=== PATIENT | male | born 1970 | race Caucasian/White ===

== ENCOUNTER → 2017-01-06 | Outpatient (CLI) | payer OTHER ==
[~2017-01-06] MED LIST: BACT800T5 PO; COLC1TAB13 PO; DOXY100T PO; INDO50CA PO; LEVO500T3 PO; LISI10TA4 PO; METO50TA7 PO
[2017-01-06 13:33] LABS: MEAN CORPUSCULAR HEMOGLOBIN 31.4 pg (27.0-33.0); RED CELL DISTRIBUTION WIDTH 12.1 % (11.5-14.5); WHITE BLOOD COUNT 7.5 K/mm3 (4.0-10.0)
[2017-01-06 13:50] LABS: ALBUMIN 4.1 GM/DL (3.2-5.2); ALBUMIN/GLOBULIN RATIO 1.14 (1.00-1.93); ALKALINE PHOSPHATASE 113 U/L (45-117); ALT/SGPT 46 U/L (12-78); ANION GAP 11 MEQ/L (8-16); AST/SGOT 21 U/L (15-37); BILIRUBIN,TOTAL 0.5 MG/DL (0.2-1.0); BLOOD UREA NITROGEN 16 MG/DL (7-18); CALCIUM LEVEL 8.9 MG/DL (8.5-10.1); CARBON DIOXIDE LEVEL 27 MEQ/L (21-32); CHLORIDE LEVEL 106 MEQ/L (98-107); CHOLESTEROL LEVEL 191 MG/DL (<200); CREATININE FOR GFR 0.89 MG/DL (0.70-1.30); GLOMERULAR FILTRATION RATE > 60.0 (>60); GLUCOSE, FASTING 95 MG/DL (70-105); POTASSIUM SERUM 4.8 MEQ/L (3.5-5.1); SODIUM LEVEL 144 MEQ/L (136-145); TOTAL PROTEIN 7.7 GM/DL (6.4-8.2); TRIGLYCERIDES LEVEL 164 MG/DL (<150); URIC ACID 10.3 MG/DL (3.5-7.2)
== END ==
LOC: M WUC 10:08
PROVIDERS: ATTEND Physician Assistant
DX: I10 Essential (primary) hypertension (principal); R35.1 Nocturia
CPT/HCPCS: 36415; 80053; 80061; 84550; 85027; G0103

== ENCOUNTER → 2018-02-02 | Outpatient (CLI) | payer OTHER ==
[2018-02-02 14:06] LABS: ALBUMIN/GLOBULIN RATIO 0.98 (1.00-1.93); ALKALINE PHOSPHATASE 114 U/L (45-117); ALT/SGPT 106 U/L (12-78); ANION GAP 7 MEQ/L (8-16); AST/SGOT 51 U/L (7-37); BILIRUBIN,TOTAL 0.5 MG/DL (0.2-1.0); BLOOD UREA NITROGEN 13 MG/DL (7-18); CALCIUM LEVEL 8.6 MG/DL (8.5-10.1); CARBON DIOXIDE LEVEL 28 MEQ/L (21-32); CHLORIDE LEVEL 105 MEQ/L (98-107); CHOLESTEROL LEVEL 201 MG/DL (<200); CHOLESTEROL RISK RATIO 6.281 (<5); CREATININE FOR GFR 0.92 MG/DL (0.70-1.30); FREE T4 0.83 NG/DL (0.76-1.46); GLOMERULAR FILTRATION RATE > 60.0 (>60); GLUCOSE, FASTING 110 MG/DL (70-100); HDL CHOLESTEROL 32 MG/DL (>40); LDL CHOLESTEROL 139 MG/DL (<100); NON-HDL-C 169 MG/DL; POTASSIUM SERUM 4.5 MEQ/L (3.5-5.1); SODIUM LEVEL 140 MEQ/L (136-145); TOTAL PROTEIN 8.1 GM/DL (6.4-8.2); TRIGLYCERIDES LEVEL 149 MG/DL (<150); URIC ACID 9.4 MG/DL (3.5-7.2)
== END ==
LOC: M SMT 10:10
DX: I10 Essential (primary) hypertension (principal); M10.9 Gout, unspecified
CPT/HCPCS: 84443

== ENCOUNTER 2018-12-18 22:29 | Emergency (ER) | payer OTHER ==
[~2018-12-18] VITALS: Ht 167.6 cm; Wt 75.0 kg
[~2018-12-18 22:29] MED LIST changes: -INDO50CA PO; +INDO50CA91 PO
[2018-12-18] MEDS ORDERED: ETHYL CHLORIDE AER SPRAY 105 ML ONE (22:30)
[2018-12-18] MEDS ORDERED: INDO50CA91 PO (22:40)
[2018-12-19] MEDS ORDERED: ETHYL CHLORIDE AER SPRAY 105 ML TOP SCH (01:00)
[2018-12-19 01:16] LABS: BASO % 0.3 % (0.0-1.0); EOS # 0.3 10^3/uL (0.0-0.50); EOS % 2.2 % (0.0-3.0); HEMOGLOBIN 14.1 g/dl (13.5-17.5); LYMPH # 2.5 10^3/uL (1.5-4.5); LYMPH % 19.1 % (24.0-44.0); MEAN CORPUSCULAR HEMOGLOBIN 30.9 pg (27.0-33.0); MEAN CORPUSCULAR HGB CONC 36.2 g/dl (32.0-36.5); MEAN CORPUSCULAR VOLUME 85.5 fl (80.0-96.0); MONO # 1.2 10^3/uL (0.0-0.8); MONO % 9.3 % (0.0-5.0); NEUTROPHILS # 8.8 10^3/uL (1.8-7.7); NEUTROPHILS % 68.6 % (36.0-66.0); PLATELET COUNT, AUTOMATED 268 10^3/uL (150-450); RED BLOOD COUNT 4.56 10^6/uL (4.30-6.10); WHITE BLOOD COUNT 12.9 10^3/uL (4.0-10.0)
[2018-12-19 01:40] LABS: ERYTHROCYTE SEDIMENTATION RATE 41 mm/hr (0-20)
[2018-12-19 01:44] LABS: BLOOD UREA NITROGEN 21 MG/DL (7-18); C REACTIVE PROTEIN QUANTITATIV 5.26 MG/DL (0.00-0.30); CALCIUM LEVEL 9.1 MG/DL (8.5-10.1); CARBON DIOXIDE LEVEL 25 MEQ/L (21-32); CHLORIDE LEVEL 106 MEQ/L (98-107); CREATININE FOR GFR 0.87 MG/DL (0.70-1.30); GLOMERULAR FILTRATION RATE > 60.0 (>56); GLUCOSE, FASTING 117 MG/DL (70-100); POTASSIUM SERUM 4.4 MEQ/L (3.5-5.1); SODIUM LEVEL 136 MEQ/L (136-145); URIC ACID 7.2 MG/DL (3.5-7.2)
[2018-12-19 02:48] LABS: SOURCE, BODY FLUID GLUCOSE RT KNEE; SOURCE, BODY FLUID URIC ACID RT KNEE; URIC ACID, BODY FLUID 7.7 MG/DL (NOT ESTABLISHED)
[2018-12-19 03:15] LABS: SOURCE, BODY FLUID RT KNEE; SYNOVIAL FLUID COLOR YELLOW (YELLOW)
[2018-12-19 03:16] LABS: CRYSTALS, BODY FLUID URIC ACID (NONE SEEN); SOURCE, BODY FLUID CRYSTALS RT KNEE
[2018-12-19 03:45] VITALS: BP 143/74
[2018-12-19] MEDS ORDERED: COLC1TAB13 PO ×2 (03:52→04:00)
[2018-12-19] MEDS ORDERED: AMOX875T2 (03:56)
[2018-12-19] MEDS ORDERED: COLCHICINE 0.6 MG TAB PO ONE (04:00)
--- NOTE | 2018-12-19 07:21 | REP ---
Right knee two views: There are no comparisons. AP and lateral views are provided. Mineralization and joint spaces are normal. There is no fracture or dislocation. There are no calcifications or foreign bodies. There is questionably a small joint effusion. Impression: Questionable small joint effusion, otherwise, negative two-view right knee. Electronically Signed by Royce Mace MD 12/19/2018 07:12 A
[2018-12-19 10:52] LABS: BODY FLUID RHEUMATOID SCREEN NEGATIVE (NEGATIVE)
[2018-12-19 10:53] LABS: MUCIN CLOT TEST 4+ (4+)
== END 2018-12-19 04:32 | disposition home or self-care (01) ==
LOC: M ED 22:29
DX: M10.061 Idiopathic gout, right knee (principal); Z79.899 Other long term (current) drug therapy

== ENCOUNTER 2019-04-03 18:21 | Emergency (ER) | payer OTHER ==
[~2019-04-03] VITALS: Ht 170.2 cm; Wt 68.2 kg
[~2019-04-03 18:21] MED LIST changes: +AMOX875T2
[2019-04-03] MEDS ORDERED: NS 1,000 ML IV SCH (18:55)
[2019-04-03] MEDS ORDERED: NITROGLYCERIN 0.4 MG SUBL TABLET SL PRN (19:00)
[2019-04-03] MEDS ORDERED: ASPIRIN 81 MG CHEW TABLET PO ONE (19:00)
[2019-04-03 19:12] VITALS: BP 154/77
[2019-04-03 19:28] LABS: BASO # 0.1 10^3/uL (0.0-0.2); BASO % 0.6 % (0.0-1.0); EOS # 0.2 10^3/uL (0.0-0.5); EOS % 1.8 % (0.0-3.0); HEMOGLOBIN 15.3 g/dl (13.5-17.5); LYMPH # 2.7 10^3/uL (1.5-5.0); LYMPH % 21.8 % (24.0-44.0); MEAN CORPUSCULAR HGB CONC 35.6 g/dl (32.0-36.5); MEAN CORPUSCULAR VOLUME 84.3 fl (80.0-96.0); MONO # 0.7 10^3/uL (0.0-0.8); MONO % 5.5 % (0.0-5.0); NEUTROPHILS # 8.7 10^3/uL (1.5-8.5); PLATELET COUNT, AUTOMATED 227 10^3/uL (150-450); WHITE BLOOD COUNT 12.5 10^3/uL (4.0-10.0)
[2019-04-03 19:37] LABS: INR 1.15; PROTHROMBIN TIME 14.4 SECONDS (11.8-14.0)
[2019-04-03 19:39] LABS: ALBUMIN 4.4 GM/DL (3.2-5.2); ALT/SGPT 33 U/L (12-78); BILIRUBIN,DIRECT 0.2 MG/DL (0.0-0.2); BILIRUBIN,TOTAL 0.5 MG/DL (0.2-1.0); BLOOD UREA NITROGEN 19 MG/DL (7-18); CALCIUM LEVEL 9.1 MG/DL (8.5-10.1); CARBON DIOXIDE LEVEL 25 MEQ/L (21-32); CHLORIDE LEVEL 104 MEQ/L (98-107); CK-MB VALUE MASS 2.9 NG/ML (<3.6); CPK CREATINE PHOSPHOKINASE 341 U/L (39-308); CREATININE FOR GFR 1.06 MG/DL (0.70-1.30); GLOMERULAR FILTRATION RATE > 60.0 (>56); GLUCOSE, FASTING 98 MG/DL (70-100); LIPASE 177 U/L (73-393); MB/CK RELATIVE INDEX 0.85 (< OR =4); POTASSIUM SERUM 4.2 MEQ/L (3.5-5.1); SODIUM LEVEL 138 MEQ/L (136-145); TOTAL PROTEIN 8.1 GM/DL (6.4-8.2); TROPONIN I < 0.02 NG/ML (< 0.10)
--- NOTE | 2019-04-03 19:39 | REP ---
Two-view chest: 04/03/2019. Indication: Chest pain. Comparison: None. Findings: The lungs are clear. There is no pleural effusion or pneumothorax. The cardiomediastinal silhouette is unremarkable. Impression: No acute cardiopulmonary process. Electronically Signed by Ross Prjaapati DO 04/03/2019 07:31 P
[2019-04-03 22:59] LABS: CK-MB VALUE MASS 2.4 NG/ML (<3.6); CPK CREATINE PHOSPHOKINASE 242 U/L (39-308); MB/CK RELATIVE INDEX 0.99 (< OR =4); TROPONIN I < 0.02 NG/ML (< 0.10)
[2019-04-03 23:25] VITALS: BP 143/82
--- NOTE | 2019-04-04 16:43 | ECGEPIP ---
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
--- NOTE | 2019-04-04 16:46 | ECGEPIP ---
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
== END 2019-04-03 23:46 | disposition home or self-care (01) ==
LOC: M ED 18:21
DX: R07.89 Other chest pain (principal); I44.7 Left bundle-branch block, unspecified; I49.9 Cardiac arrhythmia, unspecified; R06.02 Shortness of breath; I10 Essential (primary) hypertension; M10.9 Gout, unspecified; Z87.891 Personal history of nicotine dependence; Z79.899 Other long term (current) drug therapy

== ENCOUNTER → 2019-11-18 | Outpatient (CLI) | payer OTHER ==
--- NOTE | 2019-11-18 11:21 | REP ---
REASON: Pain and swelling after trauma. PRIORS: None. There is a joint effusion. There are degenerative changes. There is no evidence of an acute fracture; however, since there is a joint effusion, an occult fracture is clinically suspected, particularly affecting the radial head. There is a subtle lucency seen in the radial head but on one view only. This could represent the occult fracture. Electronically Signed by Jan Ramos DO 11/18/2019 11:50 A
== END ==
LOC: M RAD 10:05
PROVIDERS: ATTEND Physician Assistant
DX: S49.92XA Unspecified injury of left shoulder and upper arm, initial encounter (principal); X58.XXXA Exposure to other specified factors, initial encounter; Y92.89 Other specified places as the place of occurrence of the external cause; Y93.9 Activity, unspecified; Y99.9 Unspecified external cause status

== ENCOUNTER 2021-01-16 12:11 | Emergency (ER) | payer OTHER ==
[~2021-01-16] VITALS: Ht 165.1 cm; Wt 72.9 kg
[~2021-01-16 12:11] MED LIST changes: +COLC0.6T47 PO; -COLC1TAB13 PO; +LISI10TA22 PO; -LISI10TA4 PO
[2021-01-16] MEDS ORDERED: NORCO, ANEXSIA 5/325MG TABLET (HYDROcodone/ACETAMINOPHEN) PO ONE (14:30)
--- NOTE | 2021-01-16 15:21 | REP ---
INDICATION: swelling/pain/dec rom COMPARISON: 12/19/2018 TECHNIQUE: AP, lateral, bilateral oblique and sunrise views. FINDINGS: No evidence for acute fracture or dislocation. No definite effusion. Lateral and sunrise views demonstrate increased sclerosis along the patellar contour along with anterior patellar fraying, prepatellar soft tissue swelling and patellofemoral joint space narrowing. 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 <Electronically signed by Rod Weber > 01/16/21 [id number]
[2021-01-16 16:43] LABS: BASO % 0.2 % (0.0-1.0); EOS % 0.1 % (0.0-3.0); HEMATOCRIT 44.9 % (42.0-52.0); HEMOGLOBIN 15.7 g/dl (13.5-17.5); LYMPH % 4.8 % (24.0-44.0); MEAN CORPUSCULAR HEMOGLOBIN 30.5 pg (27.0-33.0); MEAN CORPUSCULAR VOLUME 87.2 fl (80.0-96.0); MONO # 1.1 10^3/uL (0.0-0.8); MONO % 5.5 % (2.0-8.0); NEUTROPHILS % 88.6 % (36.0-66.0); PLATELET COUNT, AUTOMATED 170 10^3/uL (150-450); RED BLOOD COUNT 5.15 10^6/uL (4.30-6.10); WHITE BLOOD COUNT 20.3 10^3/uL (4.0-10.0)
[2021-01-16 17:05] LABS: ALBUMIN 4.2 GM/DL (3.2-5.2); ALT/SGPT 76 U/L (12-78); BILIRUBIN,DIRECT 0.2 MG/DL (0.0-0.2); BILIRUBIN,TOTAL 0.8 MG/DL (0.2-1.0); BLOOD UREA NITROGEN 13 MG/DL (7-18); C REACTIVE PROTEIN QUANTITATIV 6.17 MG/DL (0.00-0.30); CALCIUM LEVEL 9.3 MG/DL (8.5-10.1); CARBON DIOXIDE LEVEL 26 MEQ/L (21-32); CHLORIDE LEVEL 105 MEQ/L (98-107); CREATININE FOR GFR 0.99 MG/DL (0.70-1.30); GLOMERULAR FILTRATION RATE > 60.0 (>56); GLUCOSE, FASTING 138 MG/DL (70-100); SODIUM LEVEL 138 MEQ/L (136-145); TOTAL PROTEIN 8.6 GM/DL (6.4-8.2)
[2021-01-16 17:06] LABS: ERYTHROCYTE SEDIMENTATION RATE 44 mm/hr (0-20)
[2021-01-16] MEDS ORDERED: ceFAZolin SOD 1 GM in D5W MINI-BAG PLUS 50 ML IV ONE (17:15)
[2021-01-16] MEDS ORDERED: NS 1,000 ML IV ONE (17:15)
[2021-01-16] MEDS ORDERED: DOXY1CAP62 PO (20:43)
[2021-01-16] MEDS ORDERED: HYDR-4571 PO (20:43)
[2021-01-16] MEDS ORDERED: NORCO 5/325MG TABLET (BULK FOR ED) PO ONE (21:05)
[2021-01-16 21:49] VITALS: BP 155/91
== END 2021-01-16 21:51 | disposition home or self-care (01) ==
LOC: M ED 12:11
DX: M70.41 Prepatellar bursitis, right knee (principal); M71.161 Other infective bursitis, right knee; I10 Essential (primary) hypertension; Z79.899 Other long term (current) drug therapy
CPT/HCPCS: 73564; 80048; 80076; 83605; 85025; 85652; 86140; 87040; 96365; 96366; 99284; J0690

== ENCOUNTER 2021-01-20 10:02 | Inpatient (IN) | payer OTHER ==
[~2021-01-20] VITALS: Ht 165.1 cm; Wt 71.2 kg
[~2021-01-20 10:02] MED LIST changes: +DOXY1CAP62 PO; +HYDR-4571 PO
[2021-01-20 12:06] LABS: BASO % 0.2 % (0.0-1.0); EOS % 0.2 % (0.0-3.0); HEMATOCRIT 43.6 % (42.0-52.0); HEMOGLOBIN 15.4 g/dl (13.5-17.5); LYMPH # 0.9 10^3/uL (1.5-5.0); LYMPH % 6.6 % (24.0-44.0); MEAN CORPUSCULAR HEMOGLOBIN 30.6 pg (27.0-33.0); MEAN CORPUSCULAR HGB CONC 35.3 g/dl (32.0-36.5); MEAN CORPUSCULAR VOLUME 86.7 fl (80.0-96.0); MONO # 1.2 10^3/uL (0.0-0.8); MONO % 8.5 % (2.0-8.0); NEUTROPHILS # 11.7 10^3/uL (1.5-8.5); NEUTROPHILS % 83.6 % (36.0-66.0); PLATELET COUNT, AUTOMATED 235 10^3/uL (150-450); RED BLOOD COUNT 5.03 10^6/uL (4.30-6.10)
[2021-01-20 12:30] LABS: BLOOD UREA NITROGEN 14 MG/DL (7-18); CALCIUM LEVEL 9.7 MG/DL (8.5-10.1); CARBON DIOXIDE LEVEL 27 MEQ/L (21-32); CHLORIDE LEVEL 101 MEQ/L (98-107); CREATININE FOR GFR 0.87 MG/DL (0.70-1.30); GLOMERULAR FILTRATION RATE > 60.0 (>56); GLUCOSE, FASTING 151 MG/DL (70-100); POTASSIUM SERUM 4.5 MEQ/L (3.5-5.1); SODIUM LEVEL 136 MEQ/L (136-145)
[2021-01-20 13:16] LABS: ERYTHROCYTE SEDIMENTATION RATE 63 mm/hr (0-20)
[2021-01-20] MEDS ORDERED: DOXY100T PO (13:58)
[2021-01-20] MEDS ORDERED: HYDR-3713 PO (13:58)
[2021-01-20] MEDS ORDERED: HOME MED LIST COMPLETE! XX SCH (14:00)
--- NOTE | 2021-01-20 14:27 | HPEPDOC ---
General Date of Admission Date of Service: Jan 20, 2021 Attending Physician: JOSE GUADALUPE METZ MD Chief Complaint The patient is a 50-year-old male admitted with a reason for visit of Right Knee Pain With Swelling. History of Present Illness Patient is a 50-year-old male complaining of right knee pain and swelling that began on January 15, 2021. Came to the ER on January 16, 2021 with the same pain that began after painting his house. He was started on IV Ancef and then discharged on doxycycline 100 mg twice daily for 10 days with directions to follow-up with Dr. Mcdaniel and Dr. Christianson. Patient did not follow-up with those 2 physicians because he thought his leg would get better on doxycycline. He came back to the ER because the swelling and increased temperature started to travel down patient's leg. Patient describes the pain as being burning, hot, achy pain, 10 out of 10 with 10 being the worst pain, radiating down to his mid calf. Has noticed the swelling is gotten worse and the pain is not made better with ibuprofen. He recalls no inciting event that may have triggered the knee pain and swelling. Home Medications Scheduled Doxycycline Hyclate (Doxycycline Hyclate) 100 Mg Tablet, 100 MG PO BID, (Reported) Lisinopril (Lisinopril) 10 Mg Tab, 10 MG PO QHS, (Reported) Metoprolol Tartrate (Metoprolol Tartrate) 50 Mg Tab, 50 MG PO BID, (Reported) Scheduled PRN Hydrocodone/Acetaminophen (Hydrocodone-Acetamin 5-325 mg) 1 Each Tablet, 1 TAB PO Q6H PRN for PAIN LEVEL 8-10, (Reported) Allergies Coded Allergies: No Known Allergies (Unverified , 08/02/15) Past Medical History Medical History Past medical history includes high blood pressure, gout, cellulitis abscess of the right hand Social History * Smoker: Denies Alcohol: Denies Drugs: denies A-FIB/CHADSVASC A-FIB History Current/History of A-Fib/PAF?: No Current PO Anticoag Therapy: No Age/Risk Factor Scoring CHADSVASC: CHADSVASC Response (Comments) Value Age Risk Factor Age < 65 years old 0 Gender Risk Factor Male 0 Hx of CHF No 0 Hx of HTN Yes 1 Hx of Stroke/TIA/or VTE No 0 Hx of Diabetes No 0 Hx of Vascular Disease No 0 Total 1 Review of Systems Eyes: Denies: Pain, Vision change Pulmonary: Reports: Other Symptoms (SOB ); Denies: Pleuritic Chest Pain Cardiovascular: Reports: Other Symptoms (tachycardia); Denies: Chest Pain Gastrointestinal: Denies: Nausea, Vomiting Genitourinary: Denies: Dysuria Physical Examination General Exam: Positive: Cooperative, Mild Distress (Right leg extremely tender to palpation and movement) Chest Exam: Positive: Clear to auscultation, Normal air movement Heart Exam: Positive: Rate Normal, Regular Rhythm; Negative: Irregular Rhythm, Gallops, Murmurs, Rubs Abdomen Exam: Positive: Normal bowel sounds, Soft Extremity Exam: Positive: Swelling (Right lower extremity along with warmth felt from right midfoot up to just above the knee) Vital Signs Vital Signs Date Time Temp Pulse Resp B/P (MAP) Pulse Ox O2 Delivery O2 Flow Rate FiO2 01/20/21 10:03 98.4 111 20 151/83 (105) 97 Room Air Laboratory Data Labs 24H Laboratory Tests 2 01/20/21 11:26: Immature Granulocyte % (Auto) 0.9, Neutrophils (%) (Auto) 83.6H, Lymphocytes (%) (Auto) 6.6L, Monocytes (%) (Auto) 8.5H, Eosinophils (%) (Auto) 0.2, Basophils (%) (Auto) 0.2, Neutrophils # (Auto) 11.7H, Lymphocytes # (Auto) 0.9L, Monocytes # (Auto) 1.2H, Eosinophils # (Auto) 0.0, Basophils # (Auto) 0.0, Nucleated Red Blood Cells % (auto) 0.0, Erythrocyte Sedimentation Rate 63H, Anion Gap 8, Glomerular Filtration Rate > 60.0, Lactic Acid Level 2.1*H, Calcium Level 9.7, C-Reactive Protein, Quantitative 13.60H CBC/BMP Laboratory Tests 01/20/21 11:26 Microbiology Microbiology 01/20/21 Blood Culture, Received Pending 01/20/21 Blood Culture, Received Pending Assessment/Plan Patient is a 50-year-old male who presents today continuing right knee pain and swelling that began on January 15. In the ER on January 16 he was given IV Ancef, and discharged with doxycycline 100 mg twice daily (10 days), and hydrocodone/acetaminophen. Septic prepatellar bursitis of the right knee -Began IV cefazolin 2 g every 8 hours IV -Begin vancomycin 1000 mg every 12 hours IV; pharmacy vancomycin consult placed -Labs ordered for tomorrow morning including CBCD, CMP, MG, procalcitonin, ESR, CRP -Venous duplex ultrasound of the right lower extremity has been ordered -Orthopedic consult placed with Dr. Herrera in to evaluate the need to drain the joint Pain control -[place] 09/02/2024 every 6 hours as needed for moderate pain -Acetaminophen 650 mg p.o. every 6 hours as needed for mild pain and temperature -Morphine 2 mg IV every 4 hours as needed for severe pain -Senna and Miralax both ordered to counteract opioid-induced constipation Diet and fluids -Made n.p.o. -125 mL/h normal saline VTE prophylaxis -We will begin Lovenox status post right lower extremity knee drainage Plan / VTE VTE Prophylaxis Ordered?: No (Will begin after drainage procedure tomorrow) GME ATTESTATION GME ATTESTATION My faculty preceptor for this patient encounter was physically present during the encounter and was fully available. All aspects of the patient interview, examination, medical decision making process, and medical care plan development were reviewed and approved by the faculty preceptor. The faculty preceptor is aware and concurs with the plan as stated in the body of this note and will attest to such by his/her cosignature. Siddharth Mckeon DO Jan 20, 2021 14:27
[2021-01-20] MEDS ORDERED: ACETAMINOPHEN TAB 650MG DOSE (2X325MG) PO PRN (15:05)
[2021-01-20] MEDS ORDERED: VANCOMYCIN 1000MG/20ML VIAL IP ONE (15:05)
[2021-01-20] MEDS ORDERED: SENNA 8.6 MG TAB (SENOKOT) PO PRN (15:05)
[2021-01-20] MEDS ORDERED: MIRALAX *UNIT DOSE* 17GM PACKET PO PRN (15:05)
[2021-01-20 15:21] LABS: RSV AMPLIFICATION NEGATIVE (NEGATIVE)
[2021-01-20] MEDS: NS 1,000 ML IV SCH (15:47)
[2021-01-20] MEDS ORDERED: ceFAZolin SOD 1 GM in D5W MINI-BAG PLUS 50 ML IV ONE (16:00)
--- NOTE | 2021-01-20 16:54 | REP ---
INDICATION: Right knee pain and swelling/calor COMPARISON: None. TECHNIQUE: Real time compression and duplex Doppler interrogation of the right lower extremity deep venous system is performed, including the left common femoral vein.Compression of the right peroneal and posterior tibial veins is performed. FINDINGS: The right common femoral, superficial femoral and popliteal veins are fully compressible with transducer pressure and demonstrate normal spontaneous and phasic flow, without evidence of deep venous thrombosis.The left common femoral vein demonstrates no thrombus.The visualized right peroneal and posterior tibial veins demonstrate no thrombus. IMPRESSION: No evidence of deep venous thrombosis of the right lower extremity femoral popliteal venous system.The visualized right peroneal and posterior tibial veins demonstrate no thrombus. <Electronically signed by Royce Knight > 01/20/21 [id number]
[2021-01-20] MEDS ORDERED: VANCOMYCIN HCL 750 MG, VIAL MATE ADAPTER 1 EACH in NS 250 ML IV ONE ×7 (17:00→18:00)
[2021-01-20] MEDS: ceFAZolin SOD 1 GM in D5W MINI-BAG PLUS 50 ML IV SCH ×2 (17:08→18:16)
[2021-01-20 17:45] VITALS: BP 165/89
[2021-01-20] MEDS ORDERED: VANCOMYCIN HCL 500 MG in D5W MINI-BAG PLUS 100 ML IV ONE (18:00)
[2021-01-20] MEDS: NORCO, ANEXSIA 5/325MG TABLET (HYDROcodone/ACETAMINOPHEN) PO PRN (18:27)
[2021-01-20] MEDS ORDERED: LIDOCAINE 1% MDV 20ML VIAL SC ONE (19:15)
[2021-01-20] MEDS ORDERED: LIDOCAINE 1% SDV 30ML VIAL SC SCH (19:20)
[2021-01-20 20:50] VITALS: BP 156/88
[2021-01-20 21:31] LABS: SOURCE, BODY FLUID RT KNEE; SYNOVIAL FLUID COLOR YELLOW (COLORLESS)
[2021-01-20 21:32] LABS: CRYSTALS, BODY FLUID CA PYROPHOSPHATE (NONE SEEN); SOURCE, BODY FLUID CRYSTALS RT KNEE
[2021-01-20] MEDS: MORPHINE 2 MG/ML 1ML VIAL (J2270) IV PRN (22:47)
[2021-01-21] MEDS: NS 1,000 ML IV SCH ×2 (00:45→12:56)
[2021-01-21] MEDS: NORCO, ANEXSIA 5/325MG TABLET (HYDROcodone/ACETAMINOPHEN) PO PRN ×2 (00:45→15:39)
[2021-01-21] MEDS: ceFAZolin SOD 1 GM in D5W MINI-BAG PLUS 50 ML IV SCH ×4 (00:46→08:05)
[2021-01-21] MEDS: VANCOMYCIN HCL 1,000 MG, VIAL MATE ADAPTER 1 EACH in NS 250 ML IV SCH ×2 (04:55→12:56)
[2021-01-21] MEDS: MORPHINE 2 MG/ML 1ML VIAL (J2270) IV PRN (04:55)
[2021-01-21 05:34] VITALS: BP 151/83
[2021-01-21 06:42] LABS: BASO # 0.1 10^3/uL (0.0-0.2); BASO % 0.4 % (0.0-1.0); EOS % 0.2 % (0.0-3.0); HEMATOCRIT 37.7 % (42.0-52.0); LYMPH # 0.8 10^3/uL (1.5-5.0); LYMPH % 6.4 % (24.0-44.0); MEAN CORPUSCULAR HEMOGLOBIN 30.6 pg (27.0-33.0); MEAN CORPUSCULAR HGB CONC 35.3 g/dl (32.0-36.5); MEAN CORPUSCULAR VOLUME 86.9 fl (80.0-96.0); MONO # 1.4 10^3/uL (0.0-0.8); NEUTROPHILS # 10.1 10^3/uL (1.5-8.5); NEUTROPHILS % 81.3 % (36.0-66.0); PLATELET COUNT, AUTOMATED 197 10^3/uL (150-450); RED BLOOD COUNT 4.34 10^6/uL (4.30-6.10); WHITE BLOOD COUNT 12.5 10^3/uL (4.0-10.0)
[2021-01-21 06:45] LABS: HEMOGLOBIN 13.3 g/dl (13.5-17.5)
[2021-01-21 07:12] LABS: ALBUMIN 2.8 GM/DL (3.2-5.2); ALT/SGPT 31 U/L (12-78); BILIRUBIN,TOTAL 0.8 MG/DL (0.2-1.0); BLOOD UREA NITROGEN 12 MG/DL (7-18); CALCIUM LEVEL 8.5 MG/DL (8.5-10.1); CARBON DIOXIDE LEVEL 24 MEQ/L (21-32); CHLORIDE LEVEL 105 MEQ/L (98-107); CREATININE FOR GFR 0.69 MG/DL (0.70-1.30); GLOMERULAR FILTRATION RATE > 60.0 (>56); GLUCOSE, FASTING 117 MG/DL (70-100); MAGNESIUM LEVEL 2.1 MG/DL (1.8-2.4); POTASSIUM SERUM 4.1 MEQ/L (3.5-5.1); SODIUM LEVEL 137 MEQ/L (136-145)
[2021-01-21 08:09] LABS: ERYTHROCYTE SEDIMENTATION RATE 67 mm/hr (0-20)
--- NOTE | 2021-01-21 08:36 | HPE ---
HISTORY AND PHYSICAL DATE OF ADMISSION: 01/20/2021 CHIEF COMPLAINT: Right knee swelling. HISTORY OF PRESENT ILLNESS: This 50-year-old man is complaining of right knee pain and swelling of about five to six day history. He was doing a lot of kneeling down on his knees. He had this four years ago. He is unclear as to what exactly the diagnosis was at that point but apparently it was gout according to the chart. He said he was treated with antibiotics but it did not really help at the time. He has not had any fevers or chills but he is having increasing right knee pain, burning and going down the leg now. He did try treating this with outpatient antibiotics. He never followed up with myself or Dr. Peres despite my clear recommendations to the Emergency Department provider at the time. He is not having any fever, chills, night sweats or drainage. MEDICATIONS: Doxycycline, Lisinopril, metoprolol. ALLERGIES: No known drug allergies. SOCIAL HISTORY: Denies smoking, drug or alcohol use. PHYSICAL EXAMINATION: This is a well-appearing 50-year-old man who appears mildly uncomfortable. Vital signs: Temperature is 99.5, pulse rate is 86, blood pressure is 154/74, 99% on room air. Inspection of his right lower extremity reveals he holds the knee flexed about 40 degrees. I am unable to range beyond about 5 degrees in either direction from that without pain in the knee. There is no obvious prepatellar swelling but there is a moderate size effusion. There is mild warmth, no redness and mild warmth into his calf. No pain with squeezing the calf. There is some slight tenderness with light touch and blanching, slight redness in the proximal calf area. Neurovascularly intact. Normal sensation, motor function, and superficial and deep peroneal nerves as well as saphenous, sural and tibial. Strong pedal pulses. No pain on passive stretch. RADIOGRAPHS: Reviewed from 01/16/21, mild tricompartmental osteoarthritis. LABORATORY DATA: White blood cell count 14, neutrophil percentage 83, ESR 63, CRP is 60.3, lactic acid 2.1. ASSESSMENT AND PLAN: This 50-year-old man has right knee effusion. There is wide differential for this including bacterial infections, gout or reactive arthritis. I recommend acute right knee aspiration and sending to the lab for gram stain, culture and sensitivities, cell count and crystals, and fluid analysis. I performed this this evening and will follow-up on the test. I talked directly to the medical laboratory manager, they are refusing to do a stat gram stain. They state that this is only during the day, however they are able to provide a cell count and crystal fluid analysis. For now, I recommend the patient being remaining NPO, however my overall clinical impression is this is more consistent with a reactive or gout or pseudogout process rather than septic joint. He should remain in the hospital and continue on with his intravenous antibiotics until the cultures are followed up. PROCEDURE NOTE: I discussed with the patient the pros, cons, risks and benefits of going ahead with a right knee aspiration. These risks include but are not limited to infection, pain, stiffness, bleeding, damage to surrounding structures, neurovascular injury and other risks. He wished to proceed and signed a consent form as well as I marked the right knee. I did a pre-procedure time-out with the nursing staff. I used sterilized no-touch technique. I used a 21 gauge needle to inject 1% Lidocaine at the superolateral aspect of the knee. I let that work for about seven minutes. I again cleaned the skin with a combination of alcohol and iodine prior to the local anesthetic as well as the aspiration. I used a 20 ml syringe with an 18 gauge needle to aspirate approximate 40 ml of benign appearing straw colored joint fluid. No pus. No foul smell. He immediately felt a lot better, was able to flex and extend the knee more by about 10 degrees in either direction. I cleaned the area and placed a bandage and sent the bottles for gram stain stat cell count, sensitivities and fluid analysis.
--- NOTE | 2021-01-21 11:15 | IPN ---
PROGRESS NOTE DATE: 01/20/2021 CHIEF COMPLAINT: Follow-up on right knee swelling. HISTORY OF PRESENT ILLNESS: This 50-year-old man presented with knee swelling and I performed aspiration. Post aspiration day #1, 5 [place], appears to be doing well, the knee feels a lot better. OBJECTIVE: The knee feels a lot better. This is a well-appearing 50-year-old man. Vital signs: Temperature is 98.9. Pulse rate is 82. Blood pressure is stable. The knee is still a little bit warm as is the proximal calf, is neurovascularly intact. Good pedal pulses. Calf is soft. Range of motion is improved a little bit in the knee from about 70 to 20 degrees, pain at the end of range of motion, less effusion today. Microbiology: Fluid aspiration, white blood cell count 10,170, positive for calcium pyrophosphate crystals, percent PMN 88. Blood work: White blood cell count 12, ESR is pending, CRP is 14.3. 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 I talked to Dr. Wilkins this morning. Also, in the differential would be lyme disease so Dr. Wilkins will send Lyme titers. I would still recommend to stay on the antibiotics. He appears to have potentially a mild cellulitis as well associated with this as well as consult with Dr. Peres to review the cultures. For now, I will keep him NPO until the stat gram stain is returned to fully rule out a septic joint or infection in the knee and once that result is back and if it is negative we will make his diet as tolerated.
[2021-01-21] MEDS ORDERED: NAPROXEN 250 MG TAB PO SCH (12:30)
[2021-01-21 14:00] VITALS: BP 135/69
[2021-01-21] MEDS: COLCHICINE 0.6 MG TABLET PO SCH ×2 (15:37→21:22)
[2021-01-21] MEDS: amLODIPine 5 MG TAB PO SCH (15:38)
--- NOTE | 2021-01-21 16:04 | IPNPDOC ---
Text Note Date of Service The patient was seen on 01/21/21. NOTE Subjective: Patient is a 50-year-old male who came in complaining of right knee pain. Patient was initially diagnosed on 01/16/2021 with septic prepatellar bursitis and was sent home with doxycycline with directions to follow-up with orthopedics and infectious disease. Patient reported back to the emergency department on 01/20/2021 as the swelling had been getting worse despite taking doxycycline. Patient was admitted and had an arthrocentesis performed yesterday by Dr. Mcdaniel of orthopedic surgery. Fluid analysis revealed 10,000 white blood cells with a neutrophil predominance and calcium pyrophosphate crystals. Patient is also complaining of a rash and swelling of his right ankle as well. Patient denies any fevers at this time. Patient is otherwise feeling well. Review of systems: General: Patient denies fevers HEENT: Patient denies headaches Cardiovascular: Patient denies chest pain Respiratory: Patient denies shortness of breath, cough GI: Patient denies abdominal pain, nausea, vomiting, diarrhea : Patient denies increased frequency or pain with urination Extremities: Patient reports pain in his right knee and right ankle but the pain in his right knee is decreased Neurological: Patient denies numbness or tingling in legs Physical exam: Vitals: See below General: Alert and oriented male patient who was sitting up in bed when I walked in the room. Patient not appear to any acute distress. HEENT: Normocephalic, atraumatic, moist mucous membranes. Neck: No lymphadenopathy or thyromegaly Cardiac: Regular rate and rhythm, no murmurs, normal S1, normal S2 Pulm: Clear to auscultation bilaterally. No wheezes, rhonchi, rales Abd: Nondistended, nontender to palpation, normal bowel sounds Ext: No edema bilateral lower extremities Labs: See below Imaging: Lower extremity unilateral duplex ultrasound on the right performed on 01/20/2021 is reported to show no evidence of deep venous thrombosis of the right lower extremity femoral-popliteal venous system. Visualized right peroneal posterior tibial veins demonstrate no thrombus Assessment/plan: 50-year-old male who presented with continued right knee pain and swelling that began on January 15 who was diagnosed with possible septic arthritis/pseudogout 1. Swollen knee knee was drained by Dr. Mcdaniel orthopedic surgery. It could be possibly pseudogout however, there is a concern for possible Lyme disease causing Lyme arthritis. Lyme titers have been sent patient has been switched from vancomycin and Ancef to doxycycline again for the possibility of Lyme disease. Patient also has a swollen ankle which will need further work-up. 2. Swollen right ankle. This is another flare of the patient's pseudogout, patient will be treated with prednisone at this time. 3. Hypertension. Patient is on lisinopril at home but due to getting NSAIDs, this was discontinued and amlodipine was started. Patient was on fluids due to n.p.o. status with these have since been stopped. DVT Prophylaxis: Lovenox Disposition: Pending provement in the swelling/ruling out septic arthritis VS,Rea, I+O VS, Rea, I+O Laboratory Tests 01/21/21 05:55 Vital Signs Date Time Temp Pulse Resp B/P (MAP) Pulse Ox O2 Delivery O2 Flow Rate FiO2 01/21/21 15:39 18 Room Air 01/21/21 15:38 93 172/88 01/21/21 14:00 98.8 98 I&O- Last 24 Hours up to 6 AM 01/21/21 06:00 Intake Total 350 ml Output Total 280 ml Balance 70 ml DONNELL VELAZQUEZ DO Jan 21, 2021 16:04
[2021-01-21] MEDS: predniSONE 20 MG TAB PO SCH (18:44)
[2021-01-21] MEDS: DOXYCYCLINE HYCLATE 100MG TABLET PO SCH (21:22)
[2021-01-22 06:00] VITALS: BP 119/67
[2021-01-22] MEDS ORDERED: PRED20TA PO (07:50)
[2021-01-22] MEDS ORDERED: COLC0.6T47 PO (07:50)
[2021-01-22] MEDS ORDERED: PRED10TA2 PO (07:50)
[2021-01-22] MEDS ORDERED: DOXY100T PO (07:50)
[2021-01-22 08:21] LABS: HEMATOCRIT 38.7 % (42.0-52.0); HEMOGLOBIN 13.9 g/dl (13.5-17.5); MEAN CORPUSCULAR HEMOGLOBIN 30.8 pg (27.0-33.0); MEAN CORPUSCULAR HGB CONC 35.9 g/dl (32.0-36.5); MEAN CORPUSCULAR VOLUME 85.6 fl (80.0-96.0); PLATELET COUNT, AUTOMATED 225 10^3/uL (150-450); RED BLOOD COUNT 4.52 10^6/uL (4.30-6.10); WHITE BLOOD COUNT 14.6 10^3/uL (4.0-10.0)
[2021-01-22 08:33] LABS: BLOOD UREA NITROGEN 13 MG/DL (7-18); CARBON DIOXIDE LEVEL 26 MEQ/L (21-32); CHLORIDE LEVEL 105 MEQ/L (98-107); CREATININE FOR GFR 0.75 MG/DL (0.70-1.30); GLOMERULAR FILTRATION RATE > 60.0 (>56); GLUCOSE, FASTING 157 MG/DL (70-100); MAGNESIUM LEVEL 2.2 MG/DL (1.8-2.4); POTASSIUM SERUM 4.5 MEQ/L (3.5-5.1); SODIUM LEVEL 139 MEQ/L (136-145)
--- NOTE | 2021-01-22 09:18 | IPN ---
PROGRESS NOTE DATE: 01/22/2021 CHIEF COMPLAINT: Right knee swelling. HISTORY OF PRESENT ILLNESS: A 50-year-old man has a swollen right knee. Aspiration was consistent with pseudogout. He has now been switched to doxycycline to cover possible Lyme disease by Dr. Wilkins and Dr. Peres as well as prednisone. He does feel quite a bit better today with less swelling in the knee and able to ambulate. OBJECTIVE: This is a well-appearing 50-year-old man. The knee has a much smaller effusion today. Range of motion is at least 0 to 90 degrees with minimal pain. He is able to dorsiflex and plantar flex the foot. Calf compartments are soft. He still has a little bit of redness and warmth around the lower leg, ankle and dorsum of the foot. Strong pedal pulses. No pain with ankle range of motion. Full range of motion. ASSESSMENT AND PLAN: A 50-year-old man with right knee swelling, this looks likely a pseudogout, it could also be Lyme disease, the titers are pending. He has been switched to doxycycline empirically. I suggested he follow-up with myself in about a week. I talked to Dr. Wilkins this morning. We are both in agreement to discharge home with oral antibiotics and close follow-up with Infectious Disease as well as myself. Dr. Wilkins stated that he would call the patient if the Lyme titers are positive.
[2021-01-22 09:38] VITALS: BP 119/67
[2021-01-22] MEDS: amLODIPine 5 MG TAB PO SCH (09:38)
[2021-01-22] MEDS: COLCHICINE 0.6 MG TABLET PO SCH (09:38)
[2021-01-22] MEDS: DOXYCYCLINE HYCLATE 100MG TABLET PO SCH (09:39)
[2021-01-22] MEDS: NORCO, ANEXSIA 5/325MG TABLET (HYDROcodone/ACETAMINOPHEN) PO PRN (09:39)
[2021-01-22] MEDS: predniSONE 20 MG TAB PO SCH (09:39)
--- NOTE | 2021-01-22 11:48 | DS.PDOC ---
Discharge Summary General Date of Admission Jan 20, 2021 at 15:10 Date of Discharge 01/22/2021 Primary Care Physician: Nicolas Keys Attending Physician: DONNELL VELAZQUEZ DO Specialist/Consultants Involve: ELKIN ESPINOZA MD Specialist/Consultants Involve Kalpana Peres MD infectious disease Discharge Summary PROCEDURES PERFORMED DURING STAY: Arthrocentesis of right knee performed by Dr. Espinoza ADMITTING DIAGNOSES: 1. Septic prepatellar bursitis of the right knee. DISCHARGE DIAGNOSES: 1. Right knee effusion, possibly secondary to pseudogout or possible Lyme arthritis 2. Right ankle cellulitis without joint effusion 3. Hypertension 4. Rash on chest COMPLICATIONS/CHIEF COMPLAINT: Septic Prepatellar Bursitis Of R Knee. HISTORY OF PRESENT ILLNESS: Patient is a 50-year-old male who began complaining of right knee pain and swelling that began 01/15/2021. Patient came to the ER the next day with the same pain began after painting his house. Patient was given IV Ancef and was discharged with doxycycline for 10 days. Patient was given follow-up with Dr. Espinoza and Dr. Peres however, the pain and swelling continued to worsen and on 01/20/2021, the patient presented back to the emergency department. Patient described the pain as burning, hot, achy and 10/10. The pain was radiating down to his mid calf and he noticed swelling gotten worse and was not made better with ibuprofen. Patient does not recall an inciting event that may have triggered the pain and swelling. HOSPITAL COURSE: Patient had arthrocentesis performed by Dr. Espinoza which did show an elevated white blood cell count in the knee of about 10,000 with a 90% neutrophil predominance. Patient also had calcium pyrophosphate crystals in the joint. Patient was initially diagnosed with pseudogout however, patient developed an annular rash on the center of his chest with redness also around his right ankle. Patient was diagnosed with right ankle cellulitis. Patient was able to move his right ankle on the day of discharge. Patient was started on prednisone and colchicine for possible pseudogout flare as well as doxycycline to cover for Lyme disease as the patient does spend time outside. Patient does not remember being bitten by a tick however, we want to cover while Lyme titers are pending. Patient had Lyme titers drawn on 01/21/2021 and they should be back around 7 to 10 days from that date. Patient was instructed to take 40 mg of prednisone for about 5 days and then start a prednisone taper. Patient was given 14 days of doxycycline to cover for both Lyme arthritis and the cellulitis around his right ankle. Patient was feeling well. Patient did have a slight elevation of his leukocytosis may be secondary to starting prednisone the day prior. I did contact the patient's primary care provider, Nicolas Keys at [facility] to make him aware of the plan. Patient has a follow-up appointment on 01/30/2021. If the patient's Lyme titers are positive patient will need at least 4 weeks of doxycycline for the Lyme arthritis. Patient was doing well and was deemed ready for discharge. Patient was discharged home on 01/22/2021. DISCHARGE MEDICATIONS: Please see below. ALLERGIES: Please see below. PHYSICAL EXAMINATION ON DISCHARGE: VITAL SIGNS: Please see below. General: Alert and oriented male patient who was sitting up in bed when I walked in. Patient did not appear to be in any acute distress. HEENT: Normocephalic, atraumatic, moist mucous membranes. Neck: No lymphadenopathy or thyromegaly Cardiac: Regular rate and rhythm, no murmurs, normal S1, normal S2 Pulm: Clear to auscultation bilaterally. No wheezes, rhonchi, rales Abd: Nondistended, nontender to palpation, normal bowel sounds Ext: Swelling and redness of the right knee have improved. There is some swelling and soft tissue edema around the ankle which has receded from the lines that were drawn by the nursing staff yesterday. Skin: Patient has an annular rash in the center of his chest that appears improved from yesterday. LABORATORY DATA: Please see below. IMAGING: Lower extremity duplex ultrasound of the right leg performed on 01/20/2021 is reported to show no evidence of deep venous thrombosis of the right lower extremity femoral-popliteal venous system. The visualized right peroneal and posterior tibial veins demonstrate no thrombus PROGNOSIS: Good ACTIVITY: As tolerated. DIET: Regular DISCHARGE PLAN: Discharge home DISPOSITION: 01 Home, Self-Care. DISCHARGE INSTRUCTIONS: 1. Follow-up with your primary care provider as scheduled. 2. Follow-up with both orthopedic surgery and infectious disease within 1 to 2 weeks of discharge 3. Continue taking doxycycline until you see your primary care provider. If the Lyme titers are negative, these can be stopped depending on how your cellulitis is improving, if Lyme titers are positive patient should receive 28 days of doxycycline. 4. Continue take prednisone 40 mg for 5 days and then start prednisone taper that was sent 5. Return to the emergency department if your symptoms worsen ITEMS TO FOLLOWUP ON ON OUTPATIENT: 1. Follow-up on Lyme titers. DISCHARGE CONDITION: Stable. TIME SPENT ON DISCHARGE: 35 minutes. Vital Signs/I&Os Vital Signs Date Time Temp Pulse Resp B/P (MAP) Pulse Ox O2 Delivery O2 Flow Rate FiO2 01/22/21 10:09 18 Room Air 01/22/21 09:38 69 119/67 01/22/21 06:00 98.3 97 I&O- Last 24 Hours up to 6 AM 01/22/21 06:00 Intake Total 2160 ml Output Total 3500 ml Balance -1340 ml Laboratory Data Labs 24H Laboratory Tests 2 01/22/21 07:47: Nucleated Red Blood Cells % (auto) 0.0, Anion Gap 8, Glomerular Filtration Rate > 60.0, Calcium Level 9.0, Magnesium Level 2.2 CBC/BMP Laboratory Tests 01/22/21 07:47 Microbiology Microbiology 01/20/21 Gram Stain - Final, Resulted 01/20/21 Body Fluid Culture, Resulted Pending 01/20/21 Blood Culture - Preliminary, Resulted No growth after 24 hours . All specim... 01/20/21 Blood Culture - Preliminary, Resulted No growth after 24 hours . All specim... Discharge Medications Scheduled Colchicine (Colchicine) 0.6 Mg Tablet, 0.6 MG PO BID Doxycycline Hyclate (Doxycycline Hyclate) 100 Mg Tablet, 100 MG PO BID Lisinopril (Lisinopril) 10 Mg Tab, 10 MG PO QHS, (Reported) Metoprolol Tartrate (Metoprolol Tartrate) 50 Mg Tab, 50 MG PO BID, (Reported) Prednisone (Prednisone) 20 Mg Tablet, 40 MG PO DAILY Prednisone (Prednisone) 10 Mg Tablet, 10 MG PO TAPER Take 3 tabs daily x 3 days, then 2 tabs daily x 3 days, then 1 tabs daily x 3 days, and stop Scheduled PRN Hydrocodone/Acetaminophen (Hydrocodone-Acetamin 5-325 mg) 1 Each Tablet, 1 TAB PO Q6H PRN for PAIN LEVEL 8-10, (Reported) Allergies Coded Allergies: No Known Allergies (Unverified , 4/1/16) DONNELL VELAZQUEZ DO Jan 22, 2021 11:48
[2021-01-22 17:10] LABS: Lyme Disease IgG/IgM Antibodie <0.91 ISR (0.00-0.90); Lyme Disease IgM Ab Quantitati <0.80 index (0.00-0.79)
--- NOTE | 2021-01-23 09:44 | CR ---
CONSULTATION DATE: 01/21/2021 REASON FOR CONSULTATION: I was asked to consult by Dr. Johnson for evaluation of right knee swelling. HISTORY OF PRESENT ILLNESS: Devan is a 50-year-old gentleman who presented to [facility] Emergency Room complaining of right knee swelling and pain that begin about five days prior to admission. The patient came to the emergency room on January 16 with similar complaint. He was given a prescription of doxycycline 100 mg twice a day with presumptive diagnosis of Lyme disease and was asked to follow up with Dr. Peres and Dr. Mcdaniel. The patient's knee swelling got much worse. He came to the emergency room (ER) again. He had a low-grade temperature. The knee was aspirated and was consistent with pseudogout. The patient was started on Naprosyn. Pain improved from being a 10/10. The pain was radiating down to the calf. The next day after the Naprosyn and aspiration, the knee had markedly improved, but now he had right ankle swelling and pain He did not have any fever or chills. No nausea, vomiting or diarrhea. He did not notice, but he had also a rash on his abdomen. He denied any tick bite. The patient had been started on doxycycline about 4 days prior to admission. OTHER PAST MEDICAL HISTORY: Significant for hypertension and a history of cellulitis of the hand in 2014 requiring admission. ALLERGIES: No known drug allergies. SURGICAL HISTORY: He denies smoking, alcohol or drug use. He lives with is . MEDICATIONS: Amlodipine 5 mg by mouth daily, Naprosyn 500 mg by mouth twice a day, prednisone 40 mg by mouth daily, vancomycin 1 gm IV q 8 hours, cefazolin 2 gm IV q 8 hours, Tylenol as needed. PHYSICAL EXAMINATION: He is a healthy looking gentleman in no acute distress. Vital signs: Temperature is 99.5 max, pulse 69, respirations 18, blood pressure 119/67, O2 saturation 97% on room air. Heart: Normal S1, S2. No murmurs, rubs or gallops. Lungs: Clear. No wheezes, rales or rhonchi. Abdomen: Soft, nontender, no hepatosplenomegaly. Back: No costovertebral angle (CVA) tenderness or lumbosacral tenderness. Extremities: No clubbing, cyanosis or edema. Right ankle has erythema involving the mid foot all the way to the lateral malleolus about 3 cm above, extending to the leg. He has limited range of motion, but no effusion. Right leg has normal range of motion with no redness, but swelling of the right knee compared to the left. He is able to bend his knee 90 degrees. Abdomen has an erythematous rash measuring about 20 x 15 cm, non-pruritic, nontender to touch, erythema. LABORATORY DATA: White count 12.5, hemoglobin 13.3, hematocrit 37.7, platelets 197, 81% neutrophils, 7% lymphocytes, 11% monocytes, erythrocyte sedimentation rate (ESR) 67. Sodium 137, potassium 4.1, chloride 105, bicarbonate 24, BUN 12, creatinine 0.69, glucose 167, lactic acid 2, calcium 8.4, magnesium 2.1, AST 14, ALT 31, alkaline phosphatase 83 and C-reactive protein 14.3, albumin 2.8, procalcitonin 0.08. Aspiration of the knee had only 10,170 cells with 11% monocytes and 88% PMNs with calcium pyrophosphate crystals. Wound culture is pending. Blood cultures, two sets, are no growth after 24 hours. Gram-stain from knee fluid had many red cells, many white cells, but no organisms seem. 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 He did developed swelling of the right ankle, which looks like cellulitic in nature, but chances of him developing cellulitis and an effusion in his right knee are less likely. I would suspect there is probably also another joint involved with calcium pyrophosphate arthritis of the angle rather than cellulitis. I am not sure about the rash that he developed on his abdomen is allergy to cefazolin or vancomycin, it was non-pruritic. Also the differential could include Lyme disease with erythema migrans rash and joint involvement. PLAN: At this point, I would suggest discontinuing IV vancomycin, the patient does not have methicillin-resistant Staphylococcus aureus (MRSA) and cefazolin. Switch back to doxycycline 100 mg by mouth twice a day that should cover for Lyme disease while waiting for titers. Use colchicine for crystal induced arthritis involving the knee and possibly the ankle at 0.6 mg by mouth t.i.d. for the first day and then twice a day. May also use prednisone if needed. Lyme serology has been sent and is pending. Thank you for the consultation. PALMIRA
== END 2021-01-22 11:00 | disposition home or self-care (01) | DRG 351 ==
LOC: M ED 10:02 → M ED INP 15:10 → ENRESERV 15:50 → M MS5PR 17:40
PROVIDERS: ADMIT Family Medicine; ATTEND Family Medicine
PROC: 0S9C3ZX Drainage of Right Knee Joint, Percutaneous Approach, Diagnostic (ICD-10-PCS; principal; 2021-01-20)
DX: M10.9 Gout, unspecified (principal); L03.115 Cellulitis of right lower limb; I10 Essential (primary) hypertension; M11.061 Hydroxyapatite deposition disease, right knee; Z79.899 Other long term (current) drug therapy; Z20.822 Contact with and (suspected) exposure to COVID-19; R21 Rash and other nonspecific skin eruption; A69.23 Arthritis due to Lyme disease

== ENCOUNTER 2022-10-03 11:27 | Emergency (ER) | payer OTHER ==
[~2022-10-03] VITALS: Ht 170.2 cm; Wt 72.7 kg
[~2022-10-03 11:27] MED LIST changes: +ALLO300T2; +CEPH500C PO; +DOXY-443 PO; -DOXY1CAP62 PO; +HYDR-3713 PO; +LEVO1TAB39 PO; -LEVO500T3 PO; +PRED10TA2 PO; +PRED20TA PO
[2022-10-03 13:54] VITALS: BP 166/71
== END 2022-10-03 14:01 | disposition home or self-care (01) ==
LOC: M ED 11:27
DX: L03.114 Cellulitis of left upper limb (principal); I10 Essential (primary) hypertension; Z79.899 Other long term (current) drug therapy

== ENCOUNTER 2022-12-13 11:31 | Inpatient (IN) | payer OTHER ==
[~2022-12-13] VITALS: Ht 167.6 cm; Wt 75.0 kg
[~2022-12-13 11:31] MED LIST changes: -ALLO300T2; +ALLO300T2 PO
[2022-12-13] MEDS ORDERED: MORPHINE 4 MG/ML 1ML VIAL IV ONE (13:00)
[2022-12-13 13:44] LABS: BASO # 0.1 10^3/uL (0.0-0.2); BASO % 0.4 % (0.0-1.0); EOS # 0.1 10^3/uL (0.0-0.5); EOS % 0.8 % (0.0-3.0); HEMATOCRIT 45.2 % (42.0-52.0); HEMOGLOBIN 15.9 g/dl (13.5-17.5); LYMPH # 1.4 10^3/uL (1.5-5.0); LYMPH % 8.2 % (24.0-44.0); MEAN CORPUSCULAR HEMOGLOBIN 30.6 pg (27.0-33.0); MEAN CORPUSCULAR HGB CONC 35.2 g/dl (32.0-36.5); MEAN CORPUSCULAR VOLUME 86.9 fl (80.0-96.0); MONO % 9.4 % (2.0-8.0); NEUTROPHILS # 13.8 10^3/uL (1.5-8.5); NEUTROPHILS % 80.6 % (36.0-66.0); PLATELET COUNT, AUTOMATED 247 10^3/uL (150-450); WHITE BLOOD COUNT 17.1 10^3/uL (4.0-10.0)
[2022-12-13 14:00] LABS: MONO # 1.6 10^3/uL (0.0-0.8)
[2022-12-13 14:08] LABS: BLOOD UREA NITROGEN 12 MG/DL (9-23); CALCIUM LEVEL 9.4 MG/DL (8.5-10.1); CARBON DIOXIDE LEVEL 28 MMOL/L (20-31); CHLORIDE LEVEL 101 MMOL/L (98-107); GLOMERULAR FILTRATION RATE > 60.0 (>56); GLUCOSE, FASTING 98 MG/DL (60-100); POTASSIUM SERUM 4.9 MMOL/L (3.5-5.1); SODIUM LEVEL 137 MMOL/L (136-145)
[2022-12-13 15:22] LABS: URIC ACID 8.1 MG/DL (3.7-9.2)
[2022-12-13] MEDS ORDERED: KETOROLAC 30 MG/ML 1ML VIAL IV ONE (15:40)
[2022-12-13] MEDS ORDERED: VANCOMYCIN HCL 1,500 MG in NS 250 ML IV ONE (15:40)
[2022-12-13] MEDS ORDERED: COLC0.6T47 PO (15:59)
[2022-12-13] MEDS ORDERED: VANCOMYCIN HCL 750 MG, VIAL MATE ADAPTER 1 EACH in D5W 250 ML IV ONE ×6 (16:00)
[2022-12-13] MEDS ORDERED: HOME MED LIST COMPLETE! XX SCH (16:00)
[2022-12-13] MEDS ORDERED: MAALOX 30 ML SUSP *UDC PO PRN (16:20)
[2022-12-13] MEDS ORDERED: MOM 30ML SUSPENSION UDC PO PRN (16:20)
[2022-12-13] MEDS ORDERED: ACETAMINOPHEN TAB 650MG DOSE (2X325MG) PO PRN (16:20)
[2022-12-13 16:54] LABS: PROCALCITONIN 0.08 ng/ml
[2022-12-13 17:24] LABS: ANTI-STREPTOLYSIN O QUANT 499.7 IU/ML (<195)
[2022-12-13] MEDS: NS 1,000 ML IV SCH (17:43)
[2022-12-13] MEDS ORDERED: PROHANCE 279.3MG/ML 15ML VIAL As Ordered ONE (20:11)
[2022-12-13] MEDS: DOCUSATE SODIUM 100MG CAPSULE PO SCH (21:29)
[2022-12-13] MEDS: METOPROLOL TART 50 MG TAB PO SCH (21:30)
[2022-12-13] MEDS ORDERED: VANCOMYCIN HCL 1,000 MG, VIAL MATE ADAPTER 1 EACH in D5W 250 ML IV SCH (23:00)
[2022-12-13 23:29] VITALS: BP 133/68; TEMP 98.1; O2SAT 100
[2022-12-14] MEDS: NS 1,000 ML IV SCH ×2 (04:16→19:40)
[2022-12-14 05:56] VITALS: BP 136/72; TEMP 97.6; O2SAT 97
[2022-12-14] MEDS: PERCOCET 5MG/325MG TAB PO PRN (06:07)
[2022-12-14 06:36] LABS: BASO # 0.1 10^3/uL (0.0-0.2); BASO % 0.4 % (0.0-1.0); EOS # 0.1 10^3/uL (0.0-0.5); HEMATOCRIT 39.5 % (42.0-52.0); LYMPH # 1.5 10^3/uL (1.5-5.0); LYMPH % 11.5 % (24.0-44.0); MEAN CORPUSCULAR HEMOGLOBIN 30.3 pg (27.0-33.0); MEAN CORPUSCULAR HGB CONC 34.9 g/dl (32.0-36.5); MEAN CORPUSCULAR VOLUME 86.8 fl (80.0-96.0); MONO # 1.4 10^3/uL (0.0-0.8); MONO % 11.4 % (2.0-8.0); NEUTROPHILS # 9.5 10^3/uL (1.5-8.5); NEUTROPHILS % 74.8 % (36.0-66.0); PLATELET COUNT, AUTOMATED 205 10^3/uL (150-450); RED BLOOD COUNT 4.55 10^6/uL (4.30-6.10); WHITE BLOOD COUNT 12.7 10^3/uL (4.0-10.0)
[2022-12-14 06:47] LABS: HEMOGLOBIN 13.8 g/dl (13.5-17.5)
[2022-12-14 06:56] LABS: BLOOD UREA NITROGEN 13 MG/DL (9-23); CALCIUM LEVEL 8.6 MG/DL (8.5-10.1); CARBON DIOXIDE LEVEL 24 MMOL/L (20-31); CHLORIDE LEVEL 104 MMOL/L (98-107); CREATININE FOR GFR 0.71 MG/DL (0.70-1.30); GLOMERULAR FILTRATION RATE > 60.0 (>56); GLUCOSE, FASTING 124 MG/DL (60-100); MAGNESIUM LEVEL 1.8 MG/DL (1.8-2.4); POTASSIUM SERUM 4.6 MMOL/L (3.5-5.1); SODIUM LEVEL 137 MMOL/L (136-145)
[2022-12-14] MEDS: METOPROLOL TART 50 MG TAB PO SCH ×2 (10:50→20:58)
[2022-12-14] MEDS: ENOXAPARIN 40MG/0.4ML SYRINGE (J1650 PER 10MG) SC SCH (10:50)
[2022-12-14] MEDS: allopurinoL 300 MG TAB PO SCH (10:50)
[2022-12-14] MEDS: DOCUSATE SODIUM 100MG CAPSULE PO SCH ×2 (10:50→20:58)
[2022-12-14] MEDS: VANCOMYCIN HCL 750 MG, VIAL MATE ADAPTER 1 EACH in D5W 250 ML IV SCH ×2 (11:05→23:15)
[2022-12-14] MEDS: VANCOMYCIN HCL 500 MG in D5W MINI-BAG PLUS 100 ML IV SCH (12:56)
[2022-12-14 14:00] VITALS: BP 153/84; TEMP 98.8; O2SAT 98
[2022-12-14] MEDS: MORPHINE 2 MG/ML 1ML VIAL IV PRN ×2 (14:54→19:41)
[2022-12-14 20:00] VITALS: BP 143/69; TEMP 99.6
[2022-12-15] MEDS: VANCOMYCIN HCL 500 MG in D5W MINI-BAG PLUS 100 ML IV SCH ×2 (00:56→13:06)
[2022-12-15] MEDS: PERCOCET 5MG/325MG TAB PO PRN ×2 (01:03→19:37)
[2022-12-15 05:42] VITALS: BP 145/71; TEMP 97.2; O2SAT 97
[2022-12-15] MEDS: NS 1,000 ML IV SCH ×2 (05:54→19:38)
[2022-12-15 06:45] LABS: BASO # 0.1 10^3/uL (0.0-0.2); BASO % 0.4 % (0.0-1.0); EOS # 0.1 10^3/uL (0.0-0.5); EOS % 0.9 % (0.0-3.0); HEMATOCRIT 39.6 % (42.0-52.0); LYMPH # 1.9 10^3/uL (1.5-5.0); LYMPH % 13.4 % (24.0-44.0); MEAN CORPUSCULAR HEMOGLOBIN 30.6 pg (27.0-33.0); MEAN CORPUSCULAR HGB CONC 35.4 g/dl (32.0-36.5); MEAN CORPUSCULAR VOLUME 86.7 fl (80.0-96.0); MONO # 1.4 10^3/uL (0.0-0.8); MONO % 10.1 % (2.0-8.0); NEUTROPHILS # 10.4 10^3/uL (1.5-8.5); NEUTROPHILS % 74.3 % (36.0-66.0); PLATELET COUNT, AUTOMATED 212 10^3/uL (150-450); RED BLOOD COUNT 4.57 10^6/uL (4.30-6.10)
[2022-12-15 07:08] LABS: BLOOD UREA NITROGEN 10 MG/DL (9-23); CARBON DIOXIDE LEVEL 25 MMOL/L (20-31); CHLORIDE LEVEL 102 MMOL/L (98-107); CREATININE FOR GFR 0.67 MG/DL (0.70-1.30); GLOMERULAR FILTRATION RATE > 60.0 (>56); GLUCOSE, FASTING 117 MG/DL (60-100); MAGNESIUM LEVEL 1.6 MG/DL (1.8-2.4); POTASSIUM SERUM 4.1 MMOL/L (3.5-5.1); SODIUM LEVEL 136 MMOL/L (136-145)
[2022-12-15] MEDS: METOPROLOL TART 50 MG TAB PO SCH ×2 (08:29→20:12)
[2022-12-15] MEDS: DOCUSATE SODIUM 100MG CAPSULE PO SCH ×2 (08:29→20:12)
[2022-12-15] MEDS: MAG SULF 1GM/100ML (MAG RUN) 1 GM in IV 1 EA IV SCH ×3 (08:29→10:57)
[2022-12-15] MEDS: ENOXAPARIN 40MG/0.4ML SYRINGE (J1650 PER 10MG) SC SCH (08:30)
[2022-12-15] MEDS: allopurinoL 300 MG TAB PO SCH (08:30)
[2022-12-15] MEDS: VANCOMYCIN HCL 750 MG, VIAL MATE ADAPTER 1 EACH in D5W 250 ML IV SCH (11:51)
[2022-12-15 14:00] VITALS: BP 150/68; TEMP 98.6; O2SAT 98
[2022-12-15] MEDS: AMPICILLIN SOD/SULBACTAM SOD 1.5 GM in D5W MINI-BAG PLUS 50 ML IV SCH ×2 (18:19→23:50)
[2022-12-15] MEDS: VANCOMYCIN HCL 1,000 MG, VIAL MATE ADAPTER 1 EACH in D5W 250 ML IV SCH (20:13)
[2022-12-15 20:39] VITALS: BP 153/70; TEMP 98.2; O2SAT 95
[2022-12-16] MEDS: MORPHINE 2 MG/ML 1ML VIAL IV PRN (03:06)
[2022-12-16] MEDS: VANCOMYCIN HCL 1,000 MG, VIAL MATE ADAPTER 1 EACH in D5W 250 ML IV SCH ×3 (03:43→19:40)
[2022-12-16 05:00] VITALS: TEMP 98.8
[2022-12-16 05:30] VITALS: BP 153/74; TEMP 98.8; O2SAT 97
[2022-12-16] MEDS: AMPICILLIN SOD/SULBACTAM SOD 1.5 GM in D5W MINI-BAG PLUS 50 ML IV SCH ×4 (05:49→23:59)
[2022-12-16] MEDS: NS 1,000 ML IV SCH ×2 (05:49→19:40)
[2022-12-16] MEDS: PERCOCET 5MG/325MG TAB PO PRN (05:51)
[2022-12-16 06:00] VITALS: TEMP 98.6
[2022-12-16 06:36] LABS: BASO # 0.1 10^3/uL (0.0-0.2); BASO % 0.5 % (0.0-1.0); EOS # 0.2 10^3/uL (0.0-0.5); EOS % 1.2 % (0.0-3.0); HEMATOCRIT 40.5 % (42.0-52.0); HEMOGLOBIN 14.2 g/dl (13.5-17.5); LYMPH # 1.6 10^3/uL (1.5-5.0); LYMPH % 12.5 % (24.0-44.0); MEAN CORPUSCULAR HEMOGLOBIN 30.1 pg (27.0-33.0); MEAN CORPUSCULAR HGB CONC 35.1 g/dl (32.0-36.5); MONO # 1.2 10^3/uL (0.0-0.8); MONO % 8.9 % (2.0-8.0); NEUTROPHILS # 9.8 10^3/uL (1.5-8.5); PLATELET COUNT, AUTOMATED 219 10^3/uL (150-450); RED BLOOD COUNT 4.71 10^6/uL (4.30-6.10); WHITE BLOOD COUNT 12.9 10^3/uL (4.0-10.0)
[2022-12-16 07:03] LABS: BLOOD UREA NITROGEN 11 MG/DL (9-23); CALCIUM LEVEL 9.1 MG/DL (8.5-10.1); CARBON DIOXIDE LEVEL 28 MMOL/L (20-31); CHLORIDE LEVEL 100 MMOL/L (98-107); CREATININE FOR GFR 0.79 MG/DL (0.70-1.30); GLOMERULAR FILTRATION RATE > 60.0 (>56); GLUCOSE, FASTING 164 MG/DL (60-100); POTASSIUM SERUM 4.3 MMOL/L (3.5-5.1); SODIUM LEVEL 137 MMOL/L (136-145)
[2022-12-16] MEDS: ENOXAPARIN 40MG/0.4ML SYRINGE (J1650 PER 10MG) SC SCH (09:00)
[2022-12-16] MEDS: DOCUSATE SODIUM 100MG CAPSULE PO SCH ×2 (09:03→19:42)
[2022-12-16] MEDS: METOPROLOL TART 50 MG TAB PO SCH ×2 (09:04→19:42)
[2022-12-16] MEDS: allopurinoL 300 MG TAB PO SCH (09:04)
[2022-12-16 14:00] VITALS: BP 165/82; TEMP 98.5; O2SAT 99
[2022-12-16] MEDS: predniSONE 20 MG TAB PO SCH (15:03)
[2022-12-16 21:27] VITALS: BP 139/69; TEMP 99.3; O2SAT 98
[2022-12-17] MEDS: VANCOMYCIN HCL 1,000 MG, VIAL MATE ADAPTER 1 EACH in D5W 250 ML IV SCH ×3 (03:35→20:29)
[2022-12-17] MEDS: AMPICILLIN SOD/SULBACTAM SOD 1.5 GM in D5W MINI-BAG PLUS 50 ML IV SCH ×3 (05:32→17:29)
[2022-12-17 05:48] LABS: BASO # 0.1 10^3/uL (0.0-0.2); BASO % 0.3 % (0.0-1.0); EOS # 0.1 10^3/uL (0.0-0.5); EOS % 0.6 % (0.0-3.0); HEMATOCRIT 38.6 % (42.0-52.0); HEMOGLOBIN 13.5 g/dl (13.5-17.5); LYMPH # 1.4 10^3/uL (1.5-5.0); LYMPH % 9.5 % (24.0-44.0); MEAN CORPUSCULAR HEMOGLOBIN 29.7 pg (27.0-33.0); MEAN CORPUSCULAR VOLUME 84.8 fl (80.0-96.0); MONO # 1.3 10^3/uL (0.0-0.8); MONO % 8.6 % (2.0-8.0); NEUTROPHILS # 12.1 10^3/uL (1.5-8.5); PLATELET COUNT, AUTOMATED 239 10^3/uL (150-450); RED BLOOD COUNT 4.55 10^6/uL (4.30-6.10); WHITE BLOOD COUNT 15.1 10^3/uL (4.0-10.0)
[2022-12-17 05:52] VITALS: BP 123/63; TEMP 97.4; O2SAT 99
[2022-12-17 06:18] LABS: BLOOD UREA NITROGEN 12 MG/DL (9-23); CALCIUM LEVEL 8.7 MG/DL (8.5-10.1); CARBON DIOXIDE LEVEL 22 MMOL/L (20-31); CHLORIDE LEVEL 103 MMOL/L (98-107); CREATININE FOR GFR 0.64 MG/DL (0.70-1.30); GLOMERULAR FILTRATION RATE > 60.0 (>56); GLUCOSE, FASTING 222 MG/DL (60-100); MAGNESIUM LEVEL 1.9 MG/DL (1.8-2.4); POTASSIUM SERUM 4.1 MMOL/L (3.5-5.1); SODIUM LEVEL 137 MMOL/L (136-145)
[2022-12-17] MEDS: predniSONE 20 MG TAB PO SCH (08:47)
[2022-12-17] MEDS: allopurinoL 300 MG TAB PO SCH (08:47)
[2022-12-17] MEDS: DOCUSATE SODIUM 100MG CAPSULE PO SCH ×2 (08:47→20:29)
[2022-12-17] MEDS: METOPROLOL TART 50 MG TAB PO SCH ×2 (08:47→20:30)
[2022-12-17] MEDS: NS 1,000 ML IV SCH (08:48)
[2022-12-17] MEDS: ENOXAPARIN 40MG/0.4ML SYRINGE (J1650 PER 10MG) SC SCH (08:48)
[2022-12-17 14:00] VITALS: BP 144/75; TEMP 97.7; O2SAT 98
[2022-12-17 21:26] VITALS: BP 154/85; TEMP 97.7; O2SAT 99
[2022-12-18] MEDS: AMPICILLIN SOD/SULBACTAM SOD 1.5 GM in D5W MINI-BAG PLUS 50 ML IV SCH ×3 (00:11→12:37)
[2022-12-18] MEDS: VANCOMYCIN HCL 1,000 MG, VIAL MATE ADAPTER 1 EACH in D5W 250 ML IV SCH ×2 (04:07→13:54)
[2022-12-18 05:51] VITALS: BP 156/82; TEMP 97.9; O2SAT 99
[2022-12-18] MEDS: PERCOCET 5MG/325MG TAB PO PRN (05:54)
[2022-12-18 06:07] LABS: BASO # 0.1 10^3/uL (0.0-0.2); BASO % 0.5 % (0.0-1.0); EOS # 0.1 10^3/uL (0.0-0.5); EOS % 0.9 % (0.0-3.0); HEMATOCRIT 39.3 % (42.0-52.0); HEMOGLOBIN 13.8 g/dl (13.5-17.5); LYMPH # 2.7 10^3/uL (1.5-5.0); LYMPH % 16.7 % (24.0-44.0); MEAN CORPUSCULAR HEMOGLOBIN 30.3 pg (27.0-33.0); MEAN CORPUSCULAR HGB CONC 35.1 g/dl (32.0-36.5); MEAN CORPUSCULAR VOLUME 86.4 fl (80.0-96.0); MONO % 6.1 % (2.0-8.0); NEUTROPHILS # 11.9 10^3/uL (1.5-8.5); NEUTROPHILS % 74.4 % (36.0-66.0); PLATELET COUNT, AUTOMATED 230 10^3/uL (150-450); RED BLOOD COUNT 4.55 10^6/uL (4.30-6.10)
[2022-12-18 06:27] LABS: BLOOD UREA NITROGEN 18 MG/DL (9-23); CALCIUM LEVEL 8.6 MG/DL (8.5-10.1); CARBON DIOXIDE LEVEL 24 MMOL/L (20-31); CHLORIDE LEVEL 103 MMOL/L (98-107); CREATININE FOR GFR 0.68 MG/DL (0.70-1.30); GLOMERULAR FILTRATION RATE > 60.0 (>56); GLUCOSE, FASTING 182 MG/DL (60-100); MAGNESIUM LEVEL 1.6 MG/DL (1.8-2.4); SODIUM LEVEL 137 MMOL/L (136-145)
[2022-12-18] MEDS: DOCUSATE SODIUM 100MG CAPSULE PO SCH (08:57)
[2022-12-18] MEDS: predniSONE 20 MG TAB PO SCH (08:57)
[2022-12-18] MEDS: allopurinoL 300 MG TAB PO SCH (08:57)
[2022-12-18] MEDS ORDERED: MAGNESIUM OXIDE 400MG TAB (MAG-OX) PO SCH (09:00)
[2022-12-18] MEDS: ENOXAPARIN 40MG/0.4ML SYRINGE (J1650 PER 10MG) SC SCH (09:00)
[2022-12-18 09:01] VITALS: BP 160/88
[2022-12-18] MEDS: METOPROLOL TART 50 MG TAB PO SCH (09:01)
[2022-12-18] MEDS ORDERED: PRED10TA2 PO (10:20)
[2022-12-18] MEDS ORDERED: DOXY100C3 PO (11:27)
[2022-12-18] MEDS ORDERED: PROB250C PO (11:27)
[2022-12-18] MEDS ORDERED: AUGM500T34 PO (11:27)
[2022-12-18] MEDS ORDERED: MAGN1TAB26 PO (11:36)
== END 2022-12-18 16:00 | disposition home or self-care (01) | DRG 383 ==
LOC: M ED 11:31 → M ED INP 16:17 → M MS5PR 21:00
PROVIDERS: ADMIT Internal Medicine; ATTEND Internal Medicine
DX: L03.113 Cellulitis of right upper limb (principal); I10 Essential (primary) hypertension; M10.9 Gout, unspecified; Z79.899 Other long term (current) drug therapy

== ENCOUNTER → 2023-10-26 | Outpatient (CLI) | payer OTHER ==
[~2023-10-26] MED LIST changes: +AUGM500T34 PO; +DOXY-323 PO; -DOXY-443 PO; +DOXY100C3 PO; +MAGN1TAB26 PO; +PROB250C PO
== END ==
LOC: M WUC 11:50
PROVIDERS: ATTEND Physician Assistant
DX: M79.672 Pain in left foot (principal)

== ENCOUNTER → 2023-11-17 | Outpatient (CLI) | payer OTHER ==
[2023-11-17 17:22] LABS: BASO # 0.1 10^3/uL (0.0-0.2); BASO % 0.4 % (0.0-1.0); EOS # 0.2 10^3/uL (0.0-0.5); EOS % 1.1 % (0.0-3.0); HEMATOCRIT 47.4 % (42.0-52.0); HEMOGLOBIN 16.4 g/dl (13.5-17.5); LYMPH # 1.7 10^3/uL (1.5-5.0); LYMPH % 10.3 % (24.0-44.0); MEAN CORPUSCULAR HEMOGLOBIN 30.8 pg (27.0-33.0); MEAN CORPUSCULAR HGB CONC 34.6 g/dl (32.0-36.5); MEAN CORPUSCULAR VOLUME 89.1 fl (80.0-96.0); MONO # 1.2 10^3/uL (0.0-0.8); MONO % 7.1 % (2.0-8.0); NEUTROPHILS # 13.2 10^3/uL (1.5-8.5); NEUTROPHILS % 80.2 % (36.0-66.0); PLATELET COUNT, AUTOMATED 231 10^3/uL (150-450); RED BLOOD COUNT 5.32 10^6/uL (4.30-6.10); WHITE BLOOD COUNT 16.4 10^3/uL (4.0-10.0)
[2023-11-17 17:35] LABS: ERYTHROCYTE SEDIMENTATION RATE 27 mm/hr (0-20)
[2023-11-17 17:46] LABS: ALBUMIN 4.5 G/DL (3.2-5.2); ALKALINE PHOSPHATASE 105 U/L (46-116); ALT/SGPT 90 U/L (7.0-40); AST/SGOT 35 U/L (<34); BILIRUBIN,TOTAL 0.8 MG/DL (0.3-1.2); BLOOD UREA NITROGEN 18 MG/DL (9-23); CALCIUM LEVEL 9.7 MG/DL (8.5-10.1); CARBON DIOXIDE LEVEL 25 MMOL/L (20-31); CHLORIDE LEVEL 104 MMOL/L (98-107); CREATININE FOR GFR 0.88 MG/DL (0.70-1.30); GLOMERULAR FILTRATION RATE > 60.0 (>56); GLUCOSE, FASTING 162 MG/DL (60-100); POTASSIUM SERUM 4.6 MMOL/L (3.5-5.1); SODIUM LEVEL 138 MMOL/L (136-145); TOTAL PROTEIN 7.9 G/DL (5.7-8.2)
[2023-11-17 17:50] LABS: URIC ACID 11.4 MG/DL (3.7-9.2)
[2023-11-22 14:12] LABS: LYME TOTAL ANTIBODY CIA <= 0.90 Index (<=0.90)
== END ==
LOC: M WUC 12:43
PROVIDERS: ATTEND Physician Assistant
DX: M17.11 Unilateral primary osteoarthritis, right knee (principal); M25.761 Osteophyte, right knee

== ENCOUNTER 2025-01-03 11:47 | Observation (INO) | payer OTHER ==
[~2025-01-03] VITALS: Ht 165.1 cm; Wt 72.0 kg
[~2025-01-03 11:47] MED LIST changes: -COLC0.6T47 PO; +COLC0.6T53 PO; -DOXY-323 PO; +DOXY-441 PO
[2025-01-03 13:25] LABS: CALCIUM LEVEL 9.8 MG/DL (8.5-10.1); CARBON DIOXIDE LEVEL 29 MMOL/L (20-31); CHLORIDE LEVEL 103 MMOL/L (98-107); CREATININE FOR GFR 0.81 MG/DL (0.70-1.30); GLOMERULAR FILTRATION RATE > 90.0 (>56); MAGNESIUM LEVEL 1.9 MG/DL (1.8-2.4); POTASSIUM SERUM 5.0 MMOL/L (3.5-5.1); SODIUM LEVEL 142 MMOL/L (136-145)
[2025-01-03 13:27] LABS: FREE T4 1.01 NG/DL (0.89-1.76)
[2025-01-03] MEDS ORDERED: HOME MED LIST COMPLETE! XX SCH (13:40)
[2025-01-03] MEDS ORDERED: ISOVUE-370 76% 100 ML VIAL As Ordered ONE (13:52)
[2025-01-03 14:32] LABS: CK-MB VALUE MASS 1.3 NG/ML (<3.6); CPK CREATINE PHOSPHOKINASE 123.0 U/L (46-171); MB/CK RELATIVE INDEX 1.05 (< OR =4)
[2025-01-03 14:51] LABS: CK-MB VALUE MASS 1.1 NG/ML (<3.6)
[2025-01-03 14:55] LABS: CPK CREATINE PHOSPHOKINASE 134 U/L (46-171); MB/CK RELATIVE INDEX 0.82 (< OR =4)
[2025-01-03 15:46] LABS: BASO # 0.1 10^3/uL (0.0-0.2); BASO % 0.5 % (0.0-1.0); EOS # 0.3 10^3/uL (0.0-0.5); EOS % 2.6 % (0.0-3.0); LYMPH # 2.0 10^3/uL (1.5-5.0); LYMPH % 21.5 % (24.0-44.0); MONO # 0.7 10^3/uL (0.0-0.8); MONO % 7.4 % (2.0-8.0); NEUTROPHILS # 6.4 10^3/uL (1.5-8.5); NEUTROPHILS % 67.4 % (36.0-66.0); PLATELET COUNT, AUTOMATED 261 10^3/uL (150-450)
[2025-01-03 20:30] VITALS: BP 156/73
[2025-01-03 20:33] VITALS: BP 175/81; TEMP 97.4; O2SAT 97
[2025-01-04] VITALS: BP 156/69; TEMP 97.8; O2SAT 96
[2025-01-04 01:15] LABS: CK-MB VALUE MASS < 1.0 NG/ML (<3.6)
[2025-01-04 01:16] LABS: CPK CREATINE PHOSPHOKINASE 89 U/L (46-171)
[2025-01-04 04:00] VITALS: BP_SYST 173; BP_SYST 186; BP_SYST 187; BP_DIAS 77; BP_DIAS 84; BP_DIAS 87; TEMP 97.3; O2SAT 96
[2025-01-04 04:10] VITALS: BP 173/84; TEMP 97.3; O2SAT 96
[2025-01-04 04:30] VITALS: BP_SYST 173; BP_SYST 186; BP_SYST 187; BP_DIAS 77; BP_DIAS 84; BP_DIAS 87
[2025-01-04 05:20] LABS: PLATELET COUNT, AUTOMATED 220 10^3/uL (150-450)
[2025-01-04 07:16] VITALS: BP 154/83; TEMP 97.9; O2SAT 97
[2025-01-04] MEDS: ENOXAPARIN 40 MG/0.4 ML SYRINGE (J1650 PER 10MG) SC SCH (08:13)
[2025-01-04 09:08] LABS: CK-MB VALUE MASS < 1.0 NG/ML (<3.6)
[2025-01-04 09:10] LABS: CPK CREATINE PHOSPHOKINASE 83 U/L (46-171)
[2025-01-04] MEDS ORDERED: LISI20TA33 PO (10:18)
== END 2025-01-04 11:18 | disposition home or self-care (01) ==
LOC: M ED 11:47 → M ED INP 18:25 → M ICU 20:19
PROVIDERS: ADMIT Family Medicine; ATTEND Family Medicine
DX: R00.1 Bradycardia, unspecified (principal); T44.7X5A Adverse effect of beta-adrenoreceptor antagonists, initial encounter; I10 Essential (primary) hypertension; M10.9 Gout, unspecified; R20.0 Anesthesia of skin; Z79.899 Other long term (current) drug therapy
CPT/HCPCS: 36415; 70450; 71045; 71275; 74174; 80047; 80048; 82550; 82553; 83735; 84439; 84443; 84484; 85025; 85027; 93005; 94760; 99285; Q9967

== ENCOUNTER → 2025-02-12 | Outpatient (CLI) | payer OTHER ==
[~2025-02-12] MED LIST changes: +LISI20TA33 PO
== END ==
LOC: M PLAIMG 14:06
PROVIDERS: ATTEND Physician Assistant
DX: I10 Essential (primary) hypertension (principal)

== ENCOUNTER 2025-02-15 02:51 | Emergency (ER) | payer OTHER ==
[~2025-02-15] VITALS: Ht 170.2 cm; Wt 70.5 kg
[2025-02-15] MEDS ORDERED: NITROGLYCERIN 0.4 MG SUBL TABLET SL PRN (06:05)
[2025-02-15] MEDS ORDERED: ISOVUE-370 76% 100 ML VIAL As Ordered ONE (06:25)
[2025-02-15 07:05] LABS: BASO # 0.0 10^3/uL (0.0-0.2); BASO % 0.4 % (0.0-1.0); EOS # 0.1 10^3/uL (0.0-0.5); EOS % 1.3 % (0.0-3.0); LYMPH # 1.5 10^3/uL (1.5-5.0); LYMPH % 15.0 % (24.0-44.0); MONO # 0.8 10^3/uL (0.0-0.8); MONO % 7.8 % (2.0-8.0); NEUTROPHILS # 7.6 10^3/uL (1.5-8.5); NEUTROPHILS % 75.0 % (36.0-66.0); PLATELET COUNT, AUTOMATED 239 10^3/uL (150-450)
[2025-02-15] MEDS: ASPIRIN 81 MG CHEWABLE TABLET PO ONE (07:16)
[2025-02-15 07:33] LABS: CK-MB VALUE MASS < 1.0 NG/ML (<3.6)
[2025-02-15 07:35] LABS: C REACTIVE PROTEIN QUANTITATIV 1.74 MG/DL (<1.0)
[2025-02-15 07:36] LABS: ALT/SGPT 25 U/L (7.0-40); AST/SGOT 16 U/L (<34); CALCIUM LEVEL 9.3 MG/DL (8.5-10.1); CARBON DIOXIDE LEVEL 28 MMOL/L (20-31); CHLORIDE LEVEL 105 MMOL/L (98-107); CREATININE FOR GFR 0.72 MG/DL (0.70-1.30); GLOMERULAR FILTRATION RATE > 90.0 (>56); POTASSIUM SERUM 4.6 MMOL/L (3.5-5.1); SODIUM LEVEL 141 MMOL/L (136-145)
[2025-02-15 07:38] LABS: FREE T4 0.93 NG/DL (0.89-1.76)
[2025-02-15 07:40] LABS: CPK CREATINE PHOSPHOKINASE 98 U/L (46-171)
[2025-02-15 07:42] LABS: ERYTHROCYTE SEDIMENTATION RATE 44 mm/hr (0-20)
[2025-02-15 08:34] LABS: CK-MB VALUE MASS < 1.0 NG/ML (<3.6)
[2025-02-15 08:36] LABS: CPK CREATINE PHOSPHOKINASE 95 U/L (46-171)
[2025-02-15 13:15] VITALS: BP 143/76; TEMP 96.2; O2SAT 97
== END 2025-02-15 13:48 | disposition home or self-care (01) ==
LOC: M ED 02:51
DX: R07.89 Other chest pain (principal); R20.2 Paresthesia of skin; I10 Essential (primary) hypertension; K21.9 Gastro-esophageal reflux disease without esophagitis; Z79.899 Other long term (current) drug therapy
CPT/HCPCS: 36415; 70544; 70551; 71275; 80048; 80076; 82550; 82553; 83690; 83880; 84439; 84443; 84484; 85025; 85652; 86140; 93005; 93041; 94760; 99285; Q9967